=== PATIENT | male | born 1975 | race American Indian/Alaskan Native ===

== ENCOUNTER 2022-02-01 07:51 | Day surgery (SDC) | payer BC ==
[~2022-02-01 07:51] MED LIST: SODIUM CHLORIDE 0.9% 1000 ML 1,000 ML IV SCH
--- NOTE | 2022-02-01 08:38 | Anesthesia Consultation ---
Anesthesia Consult and Med Hx Date of service: 02/01/22 - Airway Anesthetic Teeth Evaluation: Good ROM Head & Neck: Adequate Mental/Hyoid Distance: Adequate Mallampati Class: Class I Intubation Access Assessment: Good - Pre-Operative Health Status ASA Pre-Surgery Classification: ASA3 Proposed Anesthetic Plan: MAC - Pulmonary Hx Smoking: Yes (vapes) Hx Respiratory Symptoms: No (recent sinus congestion without resp symptoms) Hx Sleep Apnea: Yes (+ CPAP) - Cardiovascular System Hx Hypertension: Yes (took anithypertensives this morning) Hx Heart Attack/AMI: No - Central Nervous System CVA: No - Endocrine Hx Renal Disease: No Hx Liver Disease: No Hx Insulin Dependent Diabetes: No Hx Non-Insulin Dependent Diabetes: No Hx Thyroid Disease: No - Other Systems Hx Obesity: Yes (BMI 59) - Additional Comments Anesthesia Medical History Comments: No hx anesthetic complications.
--- NOTE | 2022-02-01 08:39 | Anesthesia Day of Surgery ---
Anesthesia Day of Surgery - Day of Surgery Patient Examined: Yes Patient H&P Reviewed: Yes Patient is NPO: Yes (water 02/01/22 1782)
[2022-02-01] MEDS ORDERED: propofoL 200 MG/20 ML VIAL IV ONE ×2 (10:02→10:22)
--- NOTE | 2022-02-01 10:33 | Procedure Note ---
Date of procedure: 02/01/22 Pre-op diagnosis: Colon Polyp Screening Post-op diagnosis: other (No Colon Polyps Noted/ Few, Left Colon Diverticuli noted/ Minor, Internsl Hemorrhoids) Procedure: Colonoscopy Anesthesia: MAC Surgeon: KIRILL GILLIAM Estimated blood loss: none Pathology: none Condition: stable Disposition: same day (Encourage fiber intake; resume previous medication and f/U in 1 to 2 weeks ([phone]).)
--- NOTE | 2022-02-01 12:01 | Post Anesthesia Evaluation ---
- Post Anesthesia Evaluation Patient Participated: Yes Airway Patent: Yes Stable Respiratory Function: Yes Nausea/Vomiting: No Temp > 96.8F: Yes Pain Manageable: Yes Adequeate Hydration: Yes Anesthesia Complications: No
--- NOTE | 2022-02-01 13:25 | Operative Report ---
DATE OF SURGERY: 02/01/2022 INDICATIONS: This is a 46-year-old obese -[place] gentleman who had a colonoscopy done as part of colon polyp screening. DESCRIPTION OF PROCEDURE: Procedure was done after getting informed consent with MAC anesthesia. Initial rectal examination was unremarkable. The instrument was passed through the rectum onto the cecum, which was identified by the ileocecal valve and appendiceal orifice. Visualization was fair to good. Cecum, ascending colon, transverse colon showed normal mucosa. There were a few left colon diverticula noted and the rectum showed some minor internal hemorrhoid on the retroverted view. There were no biopsies taken. No bleeding associated with the procedure. No complications associated with the procedure. ASSESSMENT: Colon polyp screening, no colon polyps noted. Few left colon diverticula, minor internal hemorrhoids. The patient will be encouraged to take fiber supplements. Resume previous medication and follow up in the office in 1-2 weeks' time. Procedure was done in the GI lab with assistance of the GI lab team, which included the GI nurse, the electrocardiograph technician and with assistance of Anesthesia. TID: [id number] RECEIPT: [id number] ELÍAS/BHARATH
[2022-02-01 17:40] VITALS: BP 147/78
== END 2022-02-01 11:00 | disposition home or self-care (01) ==
LOC: GIO 07:51 → EDBD 10:00 → GIO 11:00
DX: Z12.11 Encounter for screening for malignant neoplasm of colon (principal); K57.30 Diverticulosis of large intestine without perforation or abscess without bleeding; K64.8 Other hemorrhoids; I10 Essential (primary) hypertension; G47.33 Obstructive sleep apnea (adult) (pediatric); E66.9 Obesity, unspecified; F17.210 Nicotine dependence, cigarettes, uncomplicated; Z68.43 Body mass index [BMI] 50.0-59.9, adult; Z88.0 Allergy status to penicillin; Z79.899 Other long term (current) drug therapy
CPT/HCPCS: 45378; J2704; J7030